=== PATIENT | female | born 1995 | race Caucasian/White ===

== ENCOUNTER 2023-05-26 16:03 | Emergency (ER) | payer OTHER, SELFPAY ==
--- NOTE | ~2023-05-26 | CT_ITS ---
EXAMINATION: CT brain wo con DATE: 05/26/2023 17:01 INDICATION: Right facial paralysis TECHNIQUE: Computed tomography (CT) of the head was performed without intravenous contrast. Sagittal and coronal reconstructions were performed. The mA was adjusted according to patient size. Iterative reconstruction technique was employed. The dose-length product was 605.33 mGy-cm. COMPARISON: None FINDINGS: No acute intracranial hemorrhage, acute infarction or abnormal extra axial fluid collection. Ventricl es are normal and symmetric. No mass/mass effect. The orbits and mastoid air cells are normal. Partia l opacification of the left sphenoid sinus. IMPRESSION: 1. Normal brain. No acute intracranial process. Reviewed, dictated and finalized at location A.
[2023-05-26 16:48] VITALS: BP 143/91; PULSE 90; RESP 16; TEMP 36.9; O2SAT 97
--- NOTE | 2023-05-26 16:50 | ED.NEUROSD ---
HPI - Neuro Symptoms/Deficit General Chief Complaint: Neuro Symptoms/Deficit Stated Complaint: numbness to right Time Seen by Provider: 05/26/23 18:02 Focused HPI: GENERAL: Well-appearing, well-nourished, and in no acute distress. HEAD: Normocephalic, atraumatic. CHEST: Clear to auscultation. No respiratory distress. HEART: Regular rate and rhythm. NEURO: Alert and oriented x3. Unable to completely close right eye. This paresthesia right side of her face. Unable raise right eyebrow Patient screened in triage and initial orders placed. Additional care and disposition to be based upon diagnostic testing and treatment. 28-year-old female presents the emergency room for evaluation of sudden-onset numbness and tingling to right side of her mouth that has extended into her right face. Patient states that she is having difficulty closing her right eye recently. Denies any known head injury or trauma. Denies any History of Present Illness HPI Narrative: See HPI Related Data Allergies Allergy/AdvReac Type Severity Reaction Status Date / Time No Known Allergies Allergy Unverified 10/17/11 16:19 Review of Systems Review of Systems: Review of systems unremarkable except per HPI and physical exam Exam Narrative: GENERAL: Well-appearing, well-nourished, no physical limitations, and in no acute distress. HEAD: Normocephalic, atraumatic. EYES: Conjunctivae normal, PERRLA and EOMI. ENT: External nose normal, Nares clear, no rhinorrhea or epistaxis. Mucous membranes moist. Oropharynx without tonsillar hypertrophy exudate or other lesions. External ears normal, bilateral TMs normal bilaterally NECK: Supple. No meningeal signs. No adenopathy or masses. No carotid bruits or JVD CHEST: Clear to auscultation. No respiratory distress. No wheezes rales or rhonchi. HEART: Regular rate and rhythm. No murmur heard. Normal peripheral pulses. EXTREMITIES: Normal range of motion. No edema. No clubbing or cyanosis SKIN: Warm, dry, no rash. No noted wounds NEURO: No focal deficits. Alert and oriented x3. MAEW. partial Right facial paralysis, no forehead sparing, slight droop of right angle of mouth PSYCH: Cooperative. Normal mood and affect. Course Vital Signs Vital signs: Vital Signs Temperature 36.9 C 05/26/23 16:48 Pulse Rate 90 05/26/23 16:48 Respiratory Rate 16 05/26/23 16:48 Blood Pressure 143/91 H 05/26/23 16:48 Pulse Oximetry 97 05/26/23 16:48 Temperature 36.9 C 05/26/23 16:48 Pulse Rate 90 05/26/23 16:48 Respiratory Rate 16 05/26/23 16:48 Blood Pressure 143/91 H 05/26/23 16:48 Pulse Oximetry 97 05/26/23 16:48 MDM - Neuro Symptoms/Deficit Lab Data 05/26/23 17:35 05/26/23 17:35 Labs: Lab Results 05/26/23 Range/Units 17:35 WBC 10.2 H (4.5-10.0) K/mm3 RBC 4.64 (4.2-5.4) M/mm3 Hgb 13.6 (12.0-15.0) g/dL Hct 40.7 (37.0-47.0) % MCV 87.7 (80-100) fl MCH 29.3 (26-34) pg MCHC 33.4 (32-36) g/dl RDW 12.6 (11.5-14.5) % Plt Count 332 (150-375) k/mm3 MPV 10.6 H (7.4-10.4) fl Immature Gran % (Auto) 0.5 (0-0.5) % Neut % (Auto) 63.2 (45.5-73.1) % Lymph % (Auto) 28.1 (18.3-44.2) % Garvin % (Auto) 7.5 (2.6-8.5) % Eos % (Auto) 0.2 (0-4.4) % Baso % (Auto) 0.5 (0.2-1.2) % Lymph # (Auto) 2.87 (0.9-3.2) K/mm3 Garvin # (Auto) 0.8 H (0.1-0.6) K/mm3 Eos # (Auto) 0.0 (0-0.3) K/mm3 Baso # (Auto) 0.1 (0.0-0.1) K/mm3 Abs Immat Gran (auto) 0.05 H (0.00-0.031) K/mm3 Absolute Neuts (auto) 6.5 (1.3-6.7) K/mm3 Absolute Nucleated RBC 0.000 (0.0-0.012) K/mm3 Nucleated RBC % 0.0 (0.0-0.2) % Sodium 139 (137-145) mmol/L Potassium 4.0 (3.4-5.0) mmol/L Chloride 107 (98-107) mmol/L Carbon Dioxide 22 (22-30) mmol/L Anion Gap 10 (4-12) mmol/L BUN 16 (7-17) mg/dL Creatinine 0.90 (0.7-1.0) mg/dL Estim Creat Clear Calc 89 ml/min Estimated GFR > 60 (59 - ) Glucose 104 (65-110) m
[2023-05-26 17:40] LABS: Basophils Absolute Auto 0.1 K/mm3 (0.0-0.1); Basophils Percent Auto 0.5 % (0.2-1.2); Eosinophils Percent Auto 0.2 % (0-4.4); Hematocrit 40.7 % (37.0-47.0); Hemoglobin 13.6 g/dL (12.0-15.0); Immature Granulocyte Absolute 0.05 K/mm3 (0.00-0.031); Immature Granulocyte Percent A 0.5 % (0-0.5); Lymphocytes Absolute Auto 2.87 K/mm3 (0.9-3.2); Lymphocytes Percent Auto 28.1 % (18.3-44.2); Mean Corpuscular HGB Conc 33.4 g/dl (32-36); Mean Corpuscular Hemoglobin 29.3 pg (26-34); Mean Corpuscular Volume 87.7 fl (80-100); Mean Platelet Volume 10.6 fl (7.4-10.4); Monocytes Absolute Auto 0.8 K/mm3 (0.1-0.6); Monocytes Percent Auto 7.5 % (2.6-8.5); Neutrophils Absolute Auto 6.5 K/mm3 (1.3-6.7); Neutrophils Percent Auto 63.2 % (45.5-73.1); Platelet Count Result 332 k/mm3 (150-375); Red Blood Count 4.64 M/mm3 (4.2-5.4); Red Cell Distribution Width 12.6 % (11.5-14.5); White Blood Count 10.2 K/mm3 (4.5-10.0)
[2023-05-26 17:51] LABS: Alanine Aminotransferase 27 U/L (6-35); Albumin Level 4.9 g/dL (3.5-5.1); Alkaline Phosphatase 95 U/L (38-126); Anion Gap 10 mmol/L (4-12); Aspartate Amino Transferase 26 U/L (14-36); Bilirubin,Total 0.8 mg/dL (0.2-1.3); Blood Urea Nitrogen 16 mg/dL (7-17); Calcium 9.8 mg/dL (8.4-10.2); Carbon Dioxide 22 mmol/L (22-30); Chloride 107 mmol/L (98-107); Estimated CRCL calculation 89 ml/min; Estimated Glomerular Filt Rate > 60; Glucose 104 mg/dL (65-110); Sodium 139 mmol/L (137-145)
== END 2023-05-26 18:26 | disposition home or self-care (01) ==
LOC: ANHED 18:19
PROVIDERS: Emergency Provider Nurse Practitioner Family; PCP Physician Assistant Medical
DX: G51.0 Bell's palsy (principal)
CPT/HCPCS: 36415; 70450; 80053; 85025; 99284